=== PATIENT | male | born 1970 | race Caucasian/White ===

== ENCOUNTER 2019-09-17 10:14 | Outpatient (CLI) | payer OTHER ==
[2019-09-17] MEDS ORDERED: BUDE0.5A INH (10:49)
== END 2019-09-17 23:59 | disposition home or self-care (01) ==
LOC: STAR 10:14
PROVIDERS: ATTEND Internal Medicine Gastroenterology
DX: Z01.818 Encounter for other preprocedural examination (principal); Z11.59 Encounter for screening for other viral diseases
CPT/HCPCS: U0001

== ENCOUNTER 2019-09-21 08:19 | Day surgery (SDC) | payer OTHER ==
[~2019-09-21] VITALS: Ht 177.8 cm; Wt 77.0 kg
[~2019-09-21 08:19] MED LIST: BUDE0.5A INH
[2019-09-21] MEDS ORDERED: LACTATED RINGERS 1,000 ML IV SCH (08:30)
[2019-09-21 08:34] VITALS: BP 137/87
[2019-09-21] MEDS ORDERED: CHLORHEXIDINE 15 ML UDC MM ONE (09:00)
[2019-09-21] MEDS ORDERED: FENTANYL PF 100 MCG/2ML ONE (09:06)
[2019-09-21] MEDS ORDERED: ROCURONIUM 10 MG/ML,10ML ONE (09:08)
[2019-09-21] MEDS ORDERED: SUCCINYLCHOLINE 20 MG/ML, 10ML ONE (09:08)
[2019-09-21] MEDS ORDERED: LIDOCAINE-MPF 2% ,5ML ONE (09:09)
[2019-09-21] MEDS ORDERED: FENTANYL PF 100 MCG/2ML IV PRN (09:30)
[2019-09-21] MEDS ORDERED: PROMETHAZINE 25 MG/ML, 1ML IV PRN (09:30)
[2019-09-21] MEDS ORDERED: ACETAMINOPHEN 325 MG TABLET PO PRN (09:30)
[2019-09-21] MEDS ORDERED: OXYcodone 5 MG/5 ML ORAL.SOL UDC PO PRN (09:30)
[2019-09-21] MEDS ORDERED: MIDAZOLAM 1 MG/ML, 2ML IV PRN (09:30)
[2019-09-21] MEDS ORDERED: CEFAZOLIN 1,000 MG ONE (09:42)
[2019-09-21] MEDS ORDERED: PROPOFOL 10 MG/ML, 20ML ONE (09:42)
[2019-09-21] MEDS ORDERED: ONDANSETRON 2MG/ML, 2ML ONE (09:42)
[2019-09-21] MEDS ORDERED: DEXAMETHASONE 4 MG/ML, 1ML ONE (09:42)
== END 2019-09-21 11:15 | disposition home or self-care (01) ==
LOC: OUT 08:19
PROVIDERS: ATTEND Internal Medicine Gastroenterology
DX: R13.14 Dysphagia, pharyngoesophageal phase (principal); K22.2 Esophageal obstruction; K91.71 Accidental puncture and laceration of a digestive system organ or structure during a digestive system procedure; K20.0 Eosinophilic esophagitis; K44.9 Diaphragmatic hernia without obstruction or gangrene; K21.9 Gastro-esophageal reflux disease without esophagitis; G43.909 Migraine, unspecified, not intractable, without status migrainosus; Z79.899 Other long term (current) drug therapy; Z88.5 Allergy status to narcotic agent; Z91.018 Allergy to other foods; Z98.52 Vasectomy status; Z90.49 Acquired absence of other specified parts of digestive tract; Z98.890 Other specified postprocedural states; Z82.61 Family history of arthritis; Z83.79 Family history of other diseases of the digestive system; Y83.8 Other surgical procedures as the cause of abnormal reaction of the patient, or of later complication, without mention of misadventure at the time of the procedure
CPT/HCPCS: 43248; 43249; C1725; J1100; J2405; J2704; J3010; J7120; J0690; J0330

== ENCOUNTER → 2020-04-06 | Outpatient (CLI) | payer OTHER ==
[~2020-04-06] MED LIST changes: +[UNRECOGNIZED DRUG - REMARK]
== END | disposition home or self-care (01) ==
LOC: STAR 10:24
PROVIDERS: ATTEND Orthopaedic Surgery
DX: Z20.828 Contact with and (suspected) exposure to other viral communicable diseases (principal)
CPT/HCPCS: 87635

== ENCOUNTER 2020-04-11 05:15 | Day surgery (SDC) | payer OTHER ==
[~2020-04-11] VITALS: Ht 177.8 cm; Wt 76.5 kg
[2020-04-11] MEDS ORDERED: CHLORHEXIDINE 15 ML UDC ONE (06:06)
[2020-04-11 06:07] VITALS: BP 137/96
[2020-04-11] MEDS ORDERED: MIDAZOLAM 1 MG/ML, 2ML ONE (06:28)
[2020-04-11] MEDS ORDERED: FENTANYL PF 250 MCG/5ML ONE (06:28)
[2020-04-11] MEDS ORDERED: BUPIVACAINE/PF 0.5% ONE (06:29)
[2020-04-11] MEDS ORDERED: CHLORHEXIDINE 15 ML UDC MM ONE (06:30)
[2020-04-11] MEDS ORDERED: LACTATED RINGERS 1,000 ML IV SCH (06:30)
[2020-04-11] MEDS ORDERED: EPINEPHRINE 1 MG/ML, 1ML ONE (06:32)
[2020-04-11] MEDS ORDERED: LIDOCAINE/PF 1%, 30ML ONE (06:32)
[2020-04-11] MEDS ORDERED: DEXAMETHASONE 4 MG/ML, 1ML ONE (06:52)
[2020-04-11] MEDS ORDERED: CEFAZOLIN 1,000 MG ONE (06:52)
[2020-04-11] MEDS ORDERED: ROCURONIUM 10 MG/ML,10ML ONE (06:54)
[2020-04-11] MEDS ORDERED: ONDANSETRON 2MG/ML, 2ML ONE (06:54)
[2020-04-11] MEDS ORDERED: SUCCINYLCHOLINE 20 MG/ML, 10ML ONE (06:54)
[2020-04-11] MEDS ORDERED: PROPOFOL 10 MG/ML, 20ML ONE (06:54)
[2020-04-11] MEDS ORDERED: CLINDAMYCIN 150 MG/ML, 6ML ONE (07:05)
[2020-04-11] MEDS ORDERED: MEPERIDINE/PF 25MG/0.5ML IVPush PRN (07:30)
[2020-04-11] MEDS ORDERED: LABETALOL 5MG/ML, 20ML IV PRN (07:30)
[2020-04-11] MEDS ORDERED: FENTANYL PF 100 MCG/2ML IV PRN (07:30)
[2020-04-11] MEDS ORDERED: DIAZEPAM 5 MG/ML, 2ML IVPush PRN (07:30)
[2020-04-11] MEDS ORDERED: ALBUTEROL SULFATE 2.5 MG/3 ML NPPB PRN (07:30)
[2020-04-11] MEDS ORDERED: ONDANSETRON 2MG/ML, 2ML IVPush PRN (07:30)
[2020-04-11] MEDS ORDERED: EPHEDRINE 50 MG/ML, 1ML IVPush PRN (07:30)
[2020-04-11] MEDS ORDERED: MIDAZOLAM 1 MG/ML, 2ML IV PRN (07:30)
[2020-04-11] MEDS ORDERED: OXYcodone 5 MG/5 ML ORAL.SOL UDC PO PRN (07:30)
[2020-04-11] MEDS ORDERED: PROMETHAZINE 12.5 MG SUPP PR PRN (07:30)
[2020-04-11] MEDS ORDERED: PROMETHAZINE 25 MG/ML, 1ML IVPush PRN (07:30)
[2020-04-11] MEDS ORDERED: hydrALAzine 20 MG/ML, 1ML IV PRN (07:30)
[2020-04-11] MEDS ORDERED: DIPHENHYDRAMINE 50 MG/ML, 1ML IVPush PRN ×2 (07:30)
[2020-04-11] MEDS ORDERED: HYDROmorphone 1 MG/ML, 1ML INJ IVPush PRN (07:30)
[2020-04-11] MEDS ORDERED: FENTANYL PF 100 MCG/2ML ONE (08:48)
[2020-04-11] MEDS ORDERED: OXYcodone 5 MG/5 ML ORAL.SOL UDC ONE (08:49)
== END 2020-04-11 10:05 | disposition home or self-care (01) ==
LOC: OUT 05:15
PROVIDERS: ATTEND Orthopaedic Surgery
DX: S46.012A Strain of muscle(s) and tendon(s) of the rotator cuff of left shoulder, initial encounter (principal); S43.432A Superior glenoid labrum lesion of left shoulder, initial encounter; M75.42 Impingement syndrome of left shoulder; M65.812 Other synovitis and tenosynovitis, left shoulder; M75.52 Bursitis of left shoulder; G89.18 Other acute postprocedural pain; K21.9 Gastro-esophageal reflux disease without esophagitis; Z79.899 Other long term (current) drug therapy; Z87.891 Personal history of nicotine dependence; Z88.5 Allergy status to narcotic agent; Z91.018 Allergy to other foods; Z90.49 Acquired absence of other specified parts of digestive tract; Z98.890 Other specified postprocedural states; Z82.61 Family history of arthritis; X58.XXXA Exposure to other specified factors, initial encounter; Y93.89 Activity, other specified; Y92.89 Other specified places as the place of occurrence of the external cause; Y99.8 Other external cause status
CPT/HCPCS: 23430; 29823; 29826; 29827; 64415; C1713; J0171; J0330; J0690; J1100; J2250; J2405; J2704; J3010; J7120